=== PATIENT | female | born 1975 | race Caucasian/White ===

== ENCOUNTER 2016-09-28 16:09 | Emergency (ER) | payer SELFPAY ==
[2016-09-28 16:42] VITALS: TEMP 98.4; BMI 42.8
[2016-09-28] MEDS ORDERED: OXYCODONE HCL 5 MG TABLET PO ONE ×2 (17:02→17:49)
[2016-09-28] MEDS ORDERED: IBUPROFEN 600 MG TAB PO ONE (17:03)
--- NOTE | 2016-09-28 17:52 | EDPRACDOC ---
- General Information Chief Complaint: Headache Stated Complaint: MIGRAINE HEADACHE Time Seen by Provider: 09/28/16 16:53 Information Source: Patient Mode Of Arrival: Car Home Medications: Home Medications Amitriptyline HCl 25 mg PO QHS #30 tablet 09/28/16 Hydrocodone Bit/Acetaminophen [[place] 5-325 Tablet] 1 each PO Q4H #10 tab Ibuprofen 600 mg PO TID #20 tablet 09/28/16 Insulin Glargine,Hum.rec.anlog [Lantus] 25 unit SQ DAILY 09/28/16 Lisinopril 20 mg PO DAILY 09/28/16 Lisinopril/Hydrochlorothiazide [Lisinopril-Hctz 20-25 mg Tab] 1 each PO DAILY # 30 tab 09/28/16 Metoprolol Tartrate 25 mg PO DAILY #30 tablet 09/28/16 Allergies/Adverse Reactions: Allergies Allergy/AdvReac Type Severity Reaction Status Date / Time No Known Allergies Allergy Verified 09/28/16 16:59 - History of Present Illness Onset: one week HPI: PT PRESENTS TODAY WITH GENERALIZED MIGRAINE PLASCENCIA, INTERMITTENT DIZZINESS X 1 WEEK. PT STATES THAT SHE HAS HTN AND MIGRAINES AND HAS BEEN OUT OF HER MEDICATIONS X 3 MONTHS. NO PCP D/T INSURANCE. NO APPARENT DISTRESS UPON MY ARRIVAL. DENIES CP, SHOB, ABD PAIN, N/V/D. Location: Reports: Generalized Pain Quality: Reports: Moderate, Throbbing, Like Previous Headaches Relevant History of: Reports: Hypertension, Known Headache disorder Associated Signs and Symptoms: Reports: Occasional Headache, Other (DIZZINESS) ED Past Medical History - History Reviewed Yes Nurses notes reviewed and agree except as marked - Patient Medical History Neurological History: Reports: Cerebrovascular Accident Cardiac History: Reports: Hypertension, Hypercholesterolemia Psychological History: Denies: Depression Systemic History: Reports: Diabetes Surgical History: Reports: Appendectomy, Cholecystectomy, Hysterectomy, Tonsillectomy/Adnoidectomy - Social Medical History Smoking Status: Heavy tobacco smoker (5 or more cigarettes/day or daily pipe/ cigar) EDM Review of Systems - Review of Systems ROS Negative Except as Marked: Yes All systems reviewed and were negative except as marked Constitutional: No Symptoms Reported Eyes: No Symptoms Reported Ears: No Symptoms Reported Throat: No Symptoms Reported Nose: No Symptoms Reported Respiratory: No Symptoms Reported Cardiovascular: No Symptoms Reported Gastrointestinal: No Symptoms Reported Neurological: Dizziness, Headache Musculoskeletal: No Symptoms Reported Integumentary: No Symptoms Reported - Physical Exam Constitutional: Alert (Awake), No apparent distress Oriented to: Time, Person, Place Last recorded Vital Signs: Last Vital Signs Temp 98.4 F 09/28/16 16:38 Pulse 73 09/28/16 17:41 Resp 20 09/28/16 17:41 BP 237/125 H 09/28/16 17:41 Pulse Ox 95 09/28/16 17:41 Oxygen Pulse Oxygen Saturation 95 O2 Device Room Air Oxygen Flow Rate Fraction of Inspired Oxygen ( FIO2) - HEENT Head: Normal Eye Exam: Normal Oropharynx: Normal Tympanic Membrane: Normal ENT EAC: Normal Nose: No Symptoms Reported Neck: Normal, Denies Pain, Midline - Respiratory/Cardiovascular Respiratory: Normal - CTA Cardiovascular: Normal - GI Palpation: Normal Tenderness: Non tender - Musculoskeletal Back: Normal Extremities: Normal - Integumentary Skin: Normal Lymphatics: Normal - Neurologic Cranial Nerve: Normal Cerebellar: Normal Mood Description: Normal Thought: Coherent Perception: Normal - Re-evaluation Re-evaluation 1 Re-evaluation Time: 17:52 Re-evaluation: BP AND PLASCENCIA MINIMALLY IMPROVING. Re-evaluation 2 Re-evaluation Time: 21:16 Re-evaluation: WE WERE FINALLY ABOUT TO OBTAIN A MORE NORMALIZED PRESSURE AND PT STATES THAT HER PLASCENCIA IS MUCH BETTER. CASE DISCUSSED WITH DR. KWON. PT OK FOR HOME. - Results 09/28/16 20:22 09/28/16 20:22 Decision Time to Discharge: 21:18 - Departure Disposition: Home Condition: Improved Final Diagnosis: Migraine, Hypertensive urgency Instructions: Chronic Hypertension (ED) Education/Counseling Given To: Patient Education/Counseling Given Regarding: Diagnosis, Treatment, Follow Up Referrals: None,No Provider [Primary Care Provider] - One Week NINA PAZ [NonStaff] - One Week Prescriptions: New Amitriptyline HCl 25 mg PO QHS #30 tablet Hydrocodone Bit/Acetaminophen [[place] 5-325 Tablet] 1 each PO Q4H #10 tab Ibuprofen 600 mg PO TID #20 tablet Lisinopril/Hydrochlorothiazide [Lisinopril-Hctz 20-25 mg Tab] 1 each PO DAILY #30 tab Metoprolol Tartrate 25 mg PO DAILY #30 tablet No Action Lisinopril 20 mg PO DAILY Insulin Glargine,Hum.rec.anlog [Lantus] 25 unit SQ DAILY Additional Instructions: PLEASE ESTABLISH A PCP TO HELP MANAGE YOUR HIGH BLOOD PRESSURE. THIS CAN DAMAGE YOUR KIDNEYS IF YOU DON'T GET THIS UNDER CONTROL. [facility] IS YOUR BEST BET FINANCIALLY.
[2016-09-28] MEDS ORDERED: AMITRIPTYLINE 50 MG TAB PO ONE (18:18)
[2016-09-28] MEDS ORDERED: METOPROLOL TARTRATE 25 MG TAB PO ONE (18:44)
[2016-09-28] MEDS ORDERED: hydrALAZINE 10 MG TAB PO ONE (18:44)
[2016-09-28] MEDS ORDERED: ENALAPRILAT 1.25 MG/ML VIAL IV ONE (20:07)
[2016-09-28 20:30] LABS: AUTOMATED BASOPHIL 0.7 % (0-2); AUTOMATED EOSINOPHIL 2.5 % (0-5); AUTOMATED LYMPH 35.1 % (17-44); AUTOMATED MONOCYTE 5.9 % (3-10); AUTOMATED NEUTROPHIL 55.8 % (45-76); MPV 8.1 fL (7.4-10.4)
--- NOTE | 2016-09-28 20:37 | DIRPT ---
CLINICAL DATA: Intermittent dizziness for a week. EXAM: PORTABLE CHEST 1 VIEW COMPARISON: 03/31/2016. FINDINGS: 2020 hours. The lungs are clear wiithout focal pneumonia, edema, pneumothorax or pleural effusion. The cardio pericardial silhouette is enlarged. The visualized bony structures of the thorax are intact. IMPRESSION: No active disease. Electronically Signed By: Cesar Barrera M.D. On: 09/28/2016 20:34
[2016-09-28 20:45] LABS: BLOOD UREA NITROGEN 20 MG/DL (7-17); CALCIUM 9.3 MG/DL (8.4-10.2); CALCULATED OSMOLALITY 271 MOs/Kg (270-290); CHLORIDE 99 mEq/L (98-107); GLUCOSE 162 MG/DL (70-99); SODIUM LEVEL 137 mEq/L (137-146); TOTAL PROTEIN 7.5 G/DL (6.3-8.2)
[2016-09-28 20:47] LABS: PARTIAL THROMB. TIME 25.6 SEC (22-35)
[2016-09-28 21:35] VITALS: BP 128/79; PULSE 64
== END 2016-09-28 21:30 | disposition home or self-care (01) ==
LOC: EDMC 16:09
DX: G43.909 Migraine, unspecified, not intractable, without status migrainosus (principal); I16.0 Hypertensive urgency; E78.00 Pure hypercholesterolemia, unspecified; E11.9 Type 2 diabetes mellitus without complications; F17.200 Nicotine dependence, unspecified, uncomplicated; Z79.4 Long term (current) use of insulin; Z79.899 Other long term (current) drug therapy; Z86.73 Personal history of transient ischemic attack (TIA), and cerebral infarction without residual deficits
CPT/HCPCS: 36415; 71010; 80053; 84484; 85025; 85610; 85730; 93005; 99284; J3490